=== PATIENT | male | born 1955 | race Caucasian/White ===

== ENCOUNTER → 2024-04-12 11:31 | Outpatient (REF) | payer OTHER, SELFPAY | LOC: HWRAD 11:31 | PROVIDERS: ATTENDING PHYSICIAN Family Medicine | DX: M54.2 Cervicalgia (principal) | CPT/HCPCS: 72052 ==

== ENCOUNTER → 2024-12-08 12:45 | Outpatient (REF) | payer OTHER, SELFPAY | LOC: RAD 12:45 | PROVIDERS: ATTENDING PHYSICIAN Surgery; FAMILY PHYSICIAN Family Medicine | DX: K43.2 Incisional hernia without obstruction or gangrene (principal); Z01.812 Encounter for preprocedural laboratory examination | CPT/HCPCS: 74177; Q9967 ==